=== PATIENT | male | born 1985 | race Caucasian/White ===

== ENCOUNTER 2016-08-26 13:59 | Emergency (ER) | payer BC ==
[2016-08-26 14:07] VITALS: BP 106/68
[2016-08-26] MEDS ORDERED: DOXYcycline CAP(*) 100 MG PO ONE (14:18)
--- NOTE | 2016-08-26 14:20 | ED ---
Bite Injury/Animal - HPI Summary HPI Summary: 31M presents with tick bite on left lower abdomen today. He does not know how long it has been there. He has not tried to remove the tick. He noticed it this morning. The tick appear engorged. He denies any allergy to doxycycline. He is currently on steroids for poison pretty. - History of Current Complaint Chief Complaint: EDAnimalBite Stated Complaint: TICK ON HIP Time Seen by Provider: 08/26/16 14:08 Pain Intensity: 0 - Allergies/Home Medications Allergies/Adverse Reactions: Allergies Allergy/AdvReac Type Severity Reaction Status Date / Time No Known Allergies Allergy Verified 08/26/16 14:07 PMH/Surg Hx/FS Hx/Imm Hx Endocrine/Hematology History: Denies: Hx Anticoagulant Therapy Cardiovascular History: Denies: Hx Hypertension Infectious Disease History: No Infectious Disease History: Denies: Traveled Outside the in Last 30 Days - Family History Known Family History: Positive: Hypertension - Social History Alcohol Use: None Substance Use Type: Reports: None Smoking Status (MU): Never Smoked Tobacco Review of Systems Negative: Fever Negative: Chest Pain Negative: Shortness Of Breath Positive: Other - tick bite left abdomen All Other Systems Reviewed And Are Negative: Yes Physical Exam Triage Information Reviewed: Yes Vital Signs On Initial Exam: Initial Vitals Temp Pulse Resp BP Pulse Ox 97.7 F 90 16 106/68 98 08/26/16 14:03 08/26/16 14:03 08/26/16 14:03 08/26/16 14:03 08/26/16 14:03 Vital Signs Reviewed: Yes Appearance: Positive: Well-Appearing Skin: Positive: Other - tick on left lower abdomen with 2cm of surrouding redness around area Head/Face: Positive: Normal Head/Face Inspection Eyes: Positive: Normal, Conjunctiva Clear ENT: Positive: Normal ENT inspection, Pharynx normal, TMs normal Respiratory/Lung Sounds: Positive: Clear to Auscultation, Breath Sounds Present Cardiovascular: Positive: Normal, RRR - Matt Coma Scale Coma Scale Total: 15 Diagnostics - Vital Signs Vital Signs Temp Pulse Resp BP Pulse Ox 08/26/16 14:03 97.7 F 90 16 106/68 98 - Laboratory Lab Statement: Any lab studies that have been ordered have been reviewed, and results considered in the medical decision making process. Bite Injury Course/Dx - Course Course Of Treatment: 31M presents with tick bite to left abdomen today. The tick is still presents on exam and was removed with tick twister and area cleaned. discussed and will ppx treat for lyme with doxcycline. patient understands and agrees with plan - Diagnoses Differential Diagnosis/HQI/PQRI: Positive: Puncture, Other - lyme, tick bite, Provider Diagnosis: Tick bite Discharge - Discharge Plan Condition: Good Disposition: HOME Patient Education Materials: Tick Bite (ED) Referrals: [facility] [Outside] Additional Instructions: You have been prophylactically treated for Lyme disease Return to ED if develop any rash or signs of infection
== END 2016-08-26 14:33 | disposition home or self-care (01) ==
LOC: ED 13:59
DX: S30.861A Insect bite (nonvenomous) of abdominal wall, initial encounter (principal); W57.XXXA Bitten or stung by nonvenomous insect and other nonvenomous arthropods, initial encounter; Y93.9 Activity, unspecified; Y92.9 Unspecified place or not applicable
CPT/HCPCS: 99281; A9270-GY